=== PATIENT | male | born 1990 | race Hispanic/Latino ===

== ENCOUNTER 2016-10-22 16:30 | Emergency (ER) | payer SELFPAY ==
[2016-10-22 16:37] VITALS: TEMP 98.4; O2SAT 98; BMI 26.6
--- NOTE | 2016-10-22 16:52 | ED PDOC ---
Arrival/HPI - General Chief Complaint: Back Pain Time Seen by Provider: 10/22/16 16:43 Historian: Patient - History of Present Illness Narrative History of Present Illness (Text): 10/22/16 16:49 26yo male who present with complaint of sharp constant lower back pain since he woke up this morning. Notes that pain is worse with movement, and prolonged sitting. 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 He reports that he have had back pain in the past, but worse this time. Pain radiates posteriorly to his lower leg. He did not take any medication for the pain. Denies trauma, focal weakness, urinary/fecal incontinence, saddle anesthesia, abdominal pain, urinary symptoms, hematuria, any other complaint, Past Medical History - Provider Review Nursing Documentation Reviewed: Yes - Psychiatric Hx Substance Use: No - Surgical History Other/Comment: Lower back cyst removal Family/Social History - Physician Review Nursing Documentation Reviewed: Yes Family/Social History: Unknown Family HX Smoking Status: Current Some Days Smoker Hx Alcohol Use: Yes Frequency of alcohol use: Socially Hx Substance Use: No Allergies/Home Meds Allergies/Adverse Reactions: Allergies amoxicillin Allergy (Verified 10/22/16 16:37) RASH Penicillins Allergy (Verified 10/22/16 16:37) RASH Review of Systems - Physician Review All systems were reviewed & negative as marked: Yes - Review of Systems Constitutional: Normal Eyes: Normal ENT: Normal Respiratory: Normal Cardiovascular: Normal Gastrointestinal: Normal Genitourinary Male: Normal Musculoskeletal: Back Pain Skin: Normal Neurological: Normal Endocrine: Normal Hemo/Lymphatic: Normal Psychiatric: Normal Physical Exam Vital Signs Reviewed: Yes Vital Signs Temp Pulse Resp BP Pulse Ox 10/22/16 16:34 98.4 F 87 16 121/73 98 Temperature: Afebrile Blood Pressure: Normal Pulse: Regular Respiratory Rate: Normal Appearance: Positive for: Well-Appearing, Non-Toxic, Comfortable Pain Distress: None Mental Status: Positive for: Alert and Oriented X 3 - Systems Exam Head: Present: Atraumatic, Normocephalic Pupils: Present: PERRL Extroacular Muscles: Present: EOMI Conjunctiva: Present: Normal Mouth: Present: Moist Mucous Membranes Neck: Present: Normal Range of Motion Respiratory/Chest: Present: Clear to Auscultation, Good Air Exchange. No: Respiratory Distress, Accessory Muscle Use Cardiovascular: Present: Regular Rate and Rhythm, Normal S1, S2. No: Murmurs Abdomen: Present: Normal Bowel Sounds. No: Tenderness, Distention, Peritoneal Signs Back: Present: Pain with Leg Raise (Right leg). No: Midline Tenderness, Paraspinal Tenderness Upper Extremity: Present: Normal Inspection. No: Cyanosis, Edema Lower Extremity: Present: Normal Inspection. No: Edema Neurological: Present: GCS=15, CN II-XII Intact, Speech Normal Skin: Present: Warm, Dry, Normal Color. No: Rashes Psychiatric: Present: Alert, Oriented x 3, Normal Insight, Normal Concentration Medical Decision Making ED Course and Treatment: 10/22/16 17:30 PT was ambulatory in ED. He have no focal neurological deficit. His pain improved in ED with medication. He denied trauma. No imaging done at this time. He was DC home with Naprosyn and flexreil for MS. Referred him to his PMD. - Medication Orders Current Medication Orders: Discontinued Medications Cyclobenzaprine HCl (Flexeril) 10 mg PO STAT STA Stop: 10/22/16 16:49 Last Admin: 10/22/16 17:11 Dose: 10 mg Ketorolac Tromethamine (Toradol) 60 mg IM STAT STA Stop: 10/22/16 16:49 Last Admin: 10/22/16 17:11 Dose: 60 mg Disposition/Present on Arrival - Present on Arrival Any Indicators Present on Arrival: No History of DVT/PE: No History of Uncontrolled Diabetes: No Urinary Catheter: No History of Decub. Ulcer: No History Surgical Site Infection Following: None - Disposition Have Diagnosis and Disposition been Completed?: Yes Diagnosis: Back pain, Sciatica Disposition: HOME/ ROUTINE Disposition Time: 17:30 Patient Plan: Discharge Patient Problems: Current Active Problems Problem Status Onset Back pain Acute Sciatica Acute Condition: IMPROVED Discharge Instructions (ExitCare): Acute Low Back Pain (ED) Additional Instructions: Follow up with your doctor/orthopedist Rest and apply warm compress to area Return to ED for any new or worsening symptoms Prescriptions: Cyclobenzaprine [Cyclobenzaprine HCl] 10 mg PO TID #12 tab Naproxen [Naprosyn] 500 mg PO BID #20 tab Referrals: Noble Pabon DO [Staff Provider] - Follow up with primary Forms: WORK NOTE
[2016-10-22 17:51] VITALS: BP 120/80; PULSE 84; RESP 18
== END 2016-10-22 17:54 | disposition home or self-care (01) ==
LOC: ED 16:30
DX: M54.40 Lumbago with sciatica, unspecified side (principal)
CPT/HCPCS: 96372; 99282; J1885

== ENCOUNTER 2017-04-07 12:41 | Emergency (ER) | payer MEDICAID, OTHER ==
[2017-04-07 12:41] VITALS: BMI 26.6
[2017-04-07 12:50] VITALS: RESP 18; TEMP 98.3; O2SAT 100
[2017-04-07 14:14] LABS: BASO # 0.02 K/mm3 (0.0-2.0); BASO % 0.4 % (0.0-3.0); EOS # 0.1 (0.0-0.7); EOS % 1.1 % (1.5-5.0); GRAN # 3.06 (1.4-6.5); GRAN % 64.6 % (50.0-68.0); HEMATOCRIT 45.4 % (42.0-52.0); LYMPH # 1.3 (1.2-3.4); LYMPH % 27.1 % (22.0-35.0); MEAN CELL VOLUME 83.5 fl (80.0-105.0); MEAN CORPUSCULAR HEMOGLOBIN 27.9 pg (25.0-35.0); MEAN CORPUSCULAR HGB CONC 33.5 g/dl (31.0-37.0); MEAN PLATELET VOLUME 9.8 fl (7.0-11.0); MONO # 0.3 (0.1-0.6); MONO % 6.8 % (1.0-6.0); WHITE BLOOD COUNT 4.7 10^3/ul (4.5-11.0)
[2017-04-07 14:16] LABS: PH,URINE 8.5 (4.7-8.0); URINE BILIRUBIN NEGATIVE (NEGATIVE); URINE BLOOD NEGATIVE (NEGATIVE); URINE GLUCOSE (UA) NEGATIVE (NEGATIVE); URINE KETONE NEGATIVE (NEGATIVE); URINE LEUKOCYTE ESTERASE NEGATIVE Leu/uL (NEGATIVE); URINE PROTEIN TRACE mg/dL (<30 mg/dL); URINE UROBILINOGEN 0.2 E.U./dL (<1 E.U./dL)
[2017-04-07 14:17] LABS: URINE APPEARANCE CLEAR (CLEAR); URINE COLOR YELLOW (YELLOW)
[2017-04-07 14:18] LABS: ALB/GLOB RATIO 1.2 (1.1-1.8); ALKALINE PHOSPHATASE 53 U/L (38-126); ALT/SGPT 29 U/L (7-56); AST/SGOT 24 U/L (17-59); BILIRUBIN,TOTAL 0.6 mg/dL (0.2-1.3); BLOOD UREA NITROGEN 14 mg/dL (7-21); CALCIUM 9.1 mg/dL (8.4-10.5); CARBON DIOXIDE 29 mmol/L (21-33); CHLORIDE 102 mmol/L (98-107); GFR AFRICAN-AMERICAN > 60; GLUCOSE,RANDOM 83 mg/dL (70-110); MAGNESIUM 2.1 mg/dL (1.7-2.2); SODIUM 139 mmol/L (132-148); TOTAL PROTEIN 7.5 g/dL (5.8-8.3)
[2017-04-07 14:24] LABS: URINE RBC NEGATIVE /hpf (0-2)
[2017-04-07 14:25] LABS: INR 1.13 (0.93-1.08)
[2017-04-07 14:25] LABS: URINE AMORPHOUS SEDIMENT FEW; URINE BACTERIA MOD (NEG); URINE WBC NEGATIVE /hpf (0-6)
[2017-04-07 14:28] LABS: D DIMER < 200 ng/mL (0-243)
[2017-04-07 14:31] LABS: TROPONIN I 0.03 ng/mL
--- NOTE | 2017-04-07 15:02 | ED PDOC ---
Arrival/HPI - General Chief Complaint: Chest Pain Time Seen by Provider: 04/07/17 13:18 Historian: Patient - History of Present Illness Narrative History of Present Illness (Text): 04/07/17 14:59 26yo male present with complaint of right sided chest pain. States pain started this morning and he had an episode of vomiting today. Notes that pain is when he tries to sit up. He did not take any medication. He denies shortness of breath, abdominal pain, diaphoresis, LE edema, calf pain, recent travel, trauma , cough, dizziness, visual change, any other complaint. Past Medical History - Provider Review Nursing Documentation Reviewed: Yes - Cardiac Hx Cardiac Disorders: No - Pulmonary Hx Respiratory Disorders: No - Neurological Hx Neurological Disorder: No - HEENT Hx HEENT Disorder: No - Renal Hx Renal Disorder: No - Endocrine/Metabolic Hx Endocrine Disorders: No - Hematological/Oncological Hx Blood Disorders: No - Integumentary Hx Dermatological Disorder: No - Musculoskeletal/Rheumatological Hx Musculoskeletal Disorders: No - Gastrointestinal Hx Gastrointestinal Disorders: No - Genitourinary/Gynecological Hx Genitourinary Disorders: No - Psychiatric Hx Psychophysiologic Disorder: No Hx Substance Use: No - Surgical History Other/Comment: Lower back cyst removal Family/Social History - Physician Review Nursing Documentation Reviewed: Yes Family/Social History: Unknown Family HX Smoking Status: Current Some Days Smoker Hx Alcohol Use: Yes Hx Substance Use: No Allergies/Home Meds Allergies/Adverse Reactions: Allergies amoxicillin Allergy (Verified 04/07/17 12:49) RASH Penicillins Allergy (Verified 04/07/17 12:49) RASH Home Medications: Home Meds Medication Instructions Recorded Confirmed No Known Home Med 04/07/17 04/07/17 Review of Systems - Physician Review All systems were reviewed & negative as marked: Yes - Review of Systems Constitutional: Normal Eyes: Normal ENT: Normal Respiratory: Normal Cardiovascular: Chest Pain. absent: Palpitations, Edema, Calf Pain Gastrointestinal: Normal Genitourinary Male: Normal Musculoskeletal: Normal Skin: Normal Neurological: Normal Endocrine: Normal Hemo/Lymphatic: Normal Psychiatric: Normal Physical Exam Vital Signs Reviewed: Yes Vital Signs Temp Pulse Resp BP Pulse Ox 04/07/17 16:00 67 18 116/69 100 04/07/17 14:11 66 18 117/61 100 04/07/17 12:50 98.3 F 65 18 115/58 L 100 04/07/17 12:49 98.3 F 65 20 115/52 L 100 Temperature: Afebrile Blood Pressure: Normal Pulse: Regular Respiratory Rate: Normal Appearance: Positive for: Well-Appearing, Non-Toxic, Comfortable Pain Distress: None Mental Status: Positive for: Alert and Oriented X 3 - Systems Exam Head: Present: Atraumatic, Normocephalic Pupils: Present: PERRL Extroacular Muscles: Present: EOMI Conjunctiva: Present: Normal Mouth: Present: Moist Mucous Membranes Neck: Present: Normal Range of Motion Respiratory/Chest: Present: Clear to Auscultation, Good Air Exchange. No: Respiratory Distress, Accessory Muscle Use, Wheezes, Decreased Breath Sounds, Rales, Retracting, Rhonchi Cardiovascular: Present: Regular Rate and Rhythm, Normal S1, S2. No: Murmurs Abdomen: Present: Normal Bowel Sounds. No: Tenderness, Distention, Peritoneal Signs Back: Present: Normal Inspection Upper Extremity: Present: Normal Inspection. No: Cyanosis, Edema Lower Extremity: Present: Normal Inspection. No: Edema Neurological: Present: GCS=15, CN II-XII Intact, Speech Normal Skin: Present: Warm, Dry, Normal Color. No: Rashes Psychiatric: Present: Alert, Oriented x 3, Normal Insight, Normal Concentration Medical Decision Making ED Course and Treatment: 04/07/17 20:14 PT in Emergency department with right sided chest pain. He denies any PMH. He have no familial cardiac history and no risk factor for cardiac event. CXR NAD EKG NSR @69bpm Lab was unremarkable. Marijuana was noted in the UDS. Result was DW the pt. He was however strongly advised to avoid any strenuous/ sports activity until his cleared by a retail office manager. TRT Emergency department for any new or worsening symptoms. - Lab Interpretations Lab Results: 04/07/17 13:47 04/07/17 13:47 Lab Results 04/07/17 14:03: Urine Opiates Screen Negative, Urine Methadone Screen Negative, Ur Barbiturates Screen Negative, Ur Phencyclidine Scrn Negative, Ur Amphetamines Screen Negative, U Benzodiazepines Scrn Negative, U Oth Cocaine Metabols Negative, U Cannabinoids Screen Positive H 04/07/17 14:03: Urine Color Yellow, Urine Appearance Clear, Urine pH 8.5, Ur Specific [place] 1.015, Urine Protein Trace H, Urine Glucose (UA) Negative, Urine Ketones Negative, Urine Blood Negative, Urine Nitrate Negative, Urine Bilirubin Negative, Urine Urobilinogen 0.2, Ur Leukocyte Esterase Negative, Urine RBC Negative, Urine WBC Negative, Ur Epithelial Cells None, Amorphous Sediment Few, Urine Bacteria Mod 04/07/17 13:47: Sodium 139, Potassium 4.0, Chloride 102, Carbon Dioxide 29, Anion Gap 12, BUN 14, Creatinine 1.1, Est GFR ( Amer) > 60, Est GFR (Non- Af Amer) > 60, Random Glucose 83, Calcium 9.1, Magnesium 2.1, Total Bilirubin 0.6, AST 24, ALT 29, Alkaline Phosphatase 53, Lactate Dehydrogenase 347, Total Creatine Kinase 193, Troponin I 0.03, Total Protein 7.5, Albumin 4.1, Globulin 3.4, Albumin/Globulin Ratio 1.2 04/07/17 13:47: PT 12.3, INR 1.13 H, APTT 33.0, D-Dimer, Quantitative < 200 04/07/17 13:47: WBC 4.7, RBC 5.44, Hgb 15.2, Hct 45.4, MCV 83.5, MCH 27.9, MCHC 33.5, RDW 14.0, Plt Count 192, MPV 9.8, Gran % 64.6, Lymph % (Auto) 27.1, [place] % (Auto) 6.8 H, Eos % (Auto) 1.1 L, Baso % (Auto) 0.4, Gran # 3.06, Lymph # 1.3 , [place] # 0.3, Eos # 0.1, Baso # 0.02 - RAD Interpretation Radiology Orders: 04/07/17 13:31 CHEST TWO VIEWS (PA/LAT) [RAD] Stat - Medication Orders Current Medication Orders: Discontinued Medications Aspirin (Aspirin) 325 mg PO STAT STA Stop: 04/07/17 13:32 Last Admin: 04/07/17 13:43 Dose: 325 mg Disposition/Present on Arrival - Present on Arrival Any Indicators Present on Arrival: No History of DVT/PE: No History of Uncontrolled Diabetes: No Urinary Catheter: No History of Decub. Ulcer: No History Surgical Site Infection Following: None - Disposition Have Diagnosis and Disposition been Completed?: Yes Diagnosis: Chest pain Disposition: HOME/ ROUTINE Disposition Time: 16:00 Patient Plan: Discharge Condition: STABLE Discharge Instructions (ExitCare): Chest Pain (ED) Additional Instructions: Follow up with your private Doctor/Recruiting Assistant Avoid any strenuous/sport activity until your cleared by a retail office manager Return to Emergency department for any new or worsening symptoms Referrals: [place] [facility] [place] - Follow up with primary Rene Whitt MD [Staff Provider] - Follow up with primary PCP,NO [Primary Care Provider] - Follow up with primary Forms: [employer] (Upper Sorbian), WORK NOTE
[2017-04-07 16:24] VITALS: BP 116/69; PULSE 67
--- NOTE | 2017-04-07 16:47 | RAD ---
HISTORY: chest pain COMPARISON: No prior. TECHNIQUE: Chest PA and lateral FINDINGS: LUNGS: No active pulmonary disease. PLEURA: No significant pleural effusion identified. No pneumothorax apparent. CARDIOVASCULAR: Normal. OSSEOUS STRUCTURES: No significant abnormalities. VISUALIZED UPPER ABDOMEN: Normal. OTHER FINDINGS: None. IMPRESSION: No active disease.
--- NOTE | 2017-04-08 10:36 | CARD ---
APPROVED REPORT EKG Measurement Heart [id number] <Conclusion> Normal sinus rhythm with sinus arrhythmia Normal ECG
== END 2017-04-07 16:32 | disposition home or self-care (01) ==
LOC: ED 12:41
DX: R07.9 Chest pain, unspecified (principal)
CPT/HCPCS: 71020; 80053; 81001; 82550; 83615; 83735; 84484; 85025; 85378; 85610; 85730; 93005; 99283; G0480

== ENCOUNTER 2017-05-26 15:11 | Emergency (ER) | payer MEDICAID ==
[2017-05-26 15:11] VITALS: BMI 26.6
[2017-05-26] MEDS ORDERED: Sodium Chloride 0.9% 1,000 ML IV STA (15:46)
--- NOTE | 2017-05-26 15:46 | ED PDOC ---
Arrival/HPI - General Historian: Patient - History of Present Illness Time/Duration: 24 hours Symptom Onset: Gradual Activities at Onset: Rest - General Chief Complaint: Dizziness/Lightheaded Time Seen by Provider: 05/26/17 15:21 - History of Present Illness Narrative History of Present Illness (Text): 05/26/17 15:45 26M with no PMH presents with dizziness, nausea, vomiting x 1 episode Patient states he ate pizza at 2pm yesterday, started feeling nauseas. 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 Patient states that the dizziness is worse when he goes from sitting to standing. He feels that he does not have good balance when he feels dizzy. He also feels that at times the room is moving around him. Patient states when he turns his head while sitting, he feels dizzy, but when he lays down to turn his head he is not dizzy. Patient admitted to one episode of vomiting yesterday and 0 episodes today. Patient states he was able to eat breakfast today with no issues. Patient states that he's thirsty and a little bit nauseas at time of visit to ER. Patient has been urinating more frequently this past month and finds that it's hard to stop at times. 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 Sexually active without condom protection, no abnormal penile discharge, patient denies drinking alcohol yesterday Family Hx: Patient states his father has diabetes. (Cindy Velasquez) Past Medical History - Provider Review Nursing Documentation Reviewed: Yes - Infectious Disease Hx of Infectious Diseases: None - Cardiac Hx Cardiac Disorders: No - Pulmonary Hx Respiratory Disorders: No - Neurological Hx Neurological Disorder: Yes Hx Syncope: Yes Hx Vertigo: Yes - HEENT Hx HEENT Disorder: No - Renal Hx Renal Disorder: No - Endocrine/Metabolic Hx Endocrine Disorders: No - Hematological/Oncological Hx Blood Disorders: No - Integumentary Hx Dermatological Disorder: No - Musculoskeletal/Rheumatological Hx Musculoskeletal Disorders: No - Gastrointestinal Hx Gastrointestinal Disorders: No - Genitourinary/Gynecological Hx Genitourinary Disorders: No - Psychiatric Hx Psychophysiologic Disorder: No Hx Substance Use: Yes (Socially) - Surgical History Other/Comment: Lower back cyst removal - Anesthesia Hx Anesthesia: No Family/Social History - Physician Review Nursing Documentation Reviewed: Yes Family/Social History: Unknown Family HX Smoking Status: Never Smoked Hx Alcohol Use: Yes Frequency of alcohol use: Socially Hx Substance Use: Yes (Socially) Substance used: Marijuana Allergies/Home Meds Allergies/Adverse Reactions: Allergies amoxicillin Allergy (Verified 05/26/17 15:33) RASH Penicillins Allergy (Verified 05/26/17 15:33) RASH Review of Systems - Physician Review All systems were reviewed & negative as marked: Yes - Review of Systems Constitutional: Normal, Night Sweats. absent: Fevers Eyes: Normal. absent: Vision Changes, Photophobia, Eye Pain ENT: Normal. absent: Hearing Changes, Tinnitus, TMJ Pain Respiratory: Normal. absent: SOB, Cough, Sputum Cardiovascular: Normal Gastrointestinal: absent: Abdominal Pain, Stool Changes, Constipation, Diarrhea Genitourinary Male: Frequency (increased). absent: Urinary Output Changes Musculoskeletal: Normal. absent: Arthralgias, Back Pain, Neck Pain Skin: Normal. absent: Rash, Pruritis, Skin Lesions, Laceration, Abscess Neurological: Normal, Headache, Dizziness. absent: Focal Weakness, Gait Changes , Speech Changes, Facial Droop, Disequilibrium, Seizure Endocrine: Polyuria. absent: Diaphoresis, Polydipsia Psychiatric: absent: Anxiety, Depression, Suicidal Ideation Physical Exam Vital Signs Reviewed: No Temperature: Afebrile Blood Pressure: Normal Pulse: Regular Respiratory Rate: Normal Appearance: Positive for: Comfortable. No: Non-Toxic Pain Distress: Mild Mental Status: Positive for: Alert and Oriented X 3. No: Confused - Systems Exam Head: Present: Atraumatic, Normocephalic. No: Tenderness Pupils: Present: PERRL Extroacular Muscles: Present: EOMI Conjunctiva: Present: Normal. No: Injected, Icteric Ears: Present: Normal, NORMAL TM. No: Erythema, Normal Canal, TM Bulging Mouth: Present: Moist Mucous Membranes. No: Dry Pharnyx: Present: Normal. No: ERYTHEMA, EXUDATE Nose (External): Present: Atraumatic. No: Abrasion, Contusion, Laceration Nose (Internal): Present: Normal Inspection. No: No Active Bleeding, Moist, Engorged Neck: Present: Normal Range of Motion, Trachea Midline. No: JVD, Lymphadenopathy Respiratory/Chest: Present: Clear to Auscultation, Good Air Exchange. No: Respiratory Distress Cardiovascular: Present: Regular Rate and Rhythm, Normal S1, S2 Abdomen: Present: Normal Bowel Sounds. No: Tenderness, Distention Back: Present: Normal Inspection Upper Extremity: Present: Normal Inspection, Normal ROM, NORMAL PULSES, Capillary Refill < 2s. No: Edema Lower Extremity: Present: Normal Inspection, NORMAL PULSES, Capillary Refill < 2 s. No: Edema, CALF TENDERNESS Neurological: Present: GCS=15, CN II-XII Intact Skin: Present: Warm, Dry, Normal Color Psychiatric: Present: Alert, Oriented x 3, Normal Insight, Normal Concentration , Normal Affect, Normal Mood Vital Signs Temp Pulse Resp BP Pulse Ox 05/26/17 15:49 98.0 F 70 20 108/68 100 Medical Decision Making Re-evaluation Time: 17:06 Reassessment Condition: Improving,but remains with symptoms ED Course and Treatment: 05/26/17 16:54 Seen and examined with the resident. Our history and physical exam reveals a young gentleman complaining of a 2 day history of nausea and positional dizziness. No chest pain palpitations or dyspnea. There has been some vomiting. He markedly improved after Zofran and IV fluids. (Tolerico,Dwayne) 05/26/17 16:10 cbc cmp, mg urinalysis NS 1L bolus zofran 8mg IVP (Eng,Cindy) - Lab Interpretations Lab Results: 05/26/17 16:00 05/26/17 16:00 Lab Results 05/26/17 16:00: Sodium 141, Potassium 3.7, Chloride 103, Carbon Dioxide 26, Anion Gap 15, BUN 16, Creatinine 1.0, Est GFR ( Amer) > 60, Est GFR (Non- Af Amer) > 60, Random Glucose 89, Calcium 9.4, Magnesium 1.8, Total Bilirubin 0.5, AST 24, ALT 37, Alkaline Phosphatase 54, Total Protein 7.5, Albumin 4.2, Globulin 3.4, Albumin/Globulin Ratio 1.2 05/26/17 16:00: WBC 5.6, RBC 5.49, Hgb 15.2, Hct 45.5, MCV 82.9, MCH 27.7, MCHC 33.4, RDW 14.1, Plt Count 210, MPV 9.7, Gran % 61.0, Lymph % (Auto) 31.7, [place] % (Auto) 5.9, Eos % (Auto) 1.2 L, Baso % (Auto) 0.2, Gran # 3.43, Lymph # (Auto ) 1.8, [place] # (Auto) 0.3, Eos # (Auto) 0.1, Baso # (Auto) 0.01 - Medication Orders Current Medication Orders: Discontinued Medications Sodium Chloride (Sodium Chloride 0.9%) 1,000 mls @ 999 mls/hr IV .Q1H1M STA Stop: 05/26/17 16:46 Last Admin: 05/26/17 16:08 Dose: 999 mls/hr eMAR Start Stop Document 05/26/17 16:08 [facility] (Rec: 05/26/17 16:11 [facility] [id number]) Intravenous Solution Start Date 05/26/17 Start Time 16:11 End Date 05/26/17 End time 17:11 Total Infusion Time 60 Ondansetron HCl (Zofran Inj) 8 mg IVP STAT STA Stop: 05/26/17 15:47 Last Admin: 05/26/17 16:07 Dose: 8 mg IVP Administration Document 05/26/17 16:07 [facility] (Rec: 05/26/17 16:07 [facility] [id number]) Charges for Administration # of IVP Administrations 1 Disposition/Present on Arrival - Present on Arrival Any Indicators Present on Arrival: No History of DVT/PE: No History of Uncontrolled Diabetes: No Urinary Catheter: No History of Decub. Ulcer: No History Surgical Site Infection Following: None - Disposition Have Diagnosis and Disposition been Completed?: Yes Disposition Time: 17:09 Patient Plan: Discharge - Disposition Diagnosis: Food poisoning, Dehydration Disposition: HOME/ ROUTINE Condition: IMPROVED Additional Instructions: follow up with primary care doctor if symptoms continue to be present return to ED if nausea, vomiting, dizziness, loss of consciousness, fainting, diarrhea take medication as needed Prescriptions: Ondansetron HCl [Zofran] 4 mg PO Q6H #12 tablet Referrals: Sebastien Hurtado, [Primary Care Provider] - Follow up with primary Forms: [email or web address] (Hebrew)
[2017-05-26 15:50] VITALS: TEMP 98; O2SAT 100
[2017-05-26 16:36] LABS: BASO # 0.01 K/mm3 (0.0-2.0); BASO % 0.2 % (0.0-3.0); EOS # 0.1 (0.0-0.7); EOS % 1.2 % (1.5-5.0); GRAN # 3.43 (1.4-6.5); HEMOGLOBIN 15.2 g/dL (14.0-18.0); LYMPH # 1.8 (1.2-3.4); LYMPH % 31.7 % (22.0-35.0); MEAN CELL VOLUME 82.9 fl (80.0-105.0); MEAN CORPUSCULAR HEMOGLOBIN 27.7 pg (25.0-35.0); MEAN CORPUSCULAR HGB CONC 33.4 g/dl (31.0-37.0); MEAN PLATELET VOLUME 9.7 fl (7.0-11.0); MONO # 0.3 (0.1-0.6); MONO % 5.9 % (1.0-6.0); RBC 5.49 10^6/uL (3.5-6.1); RED CELL DISTRIBUTION WIDTH 14.1 % (11.5-14.5); WHITE BLOOD COUNT 5.6 10^3/ul (4.5-11.0)
[2017-05-26 16:41] LABS: ALB/GLOB RATIO 1.2 (1.1-1.8); ALBUMIN 4.2 g/dL (3.0-4.8); ALT/SGPT 37 U/L (7-56); AST/SGOT 24 U/L (17-59); BLOOD UREA NITROGEN 16 mg/dL (7-21); CALCIUM 9.4 mg/dL (8.4-10.5); GFR AFRICAN-AMERICAN > 60; GFR NON-AFRICAN AMERICAN > 60; MAGNESIUM 1.8 mg/dL (1.7-2.2)
[2017-05-26 18:21] LABS: PH,URINE 7.5 (4.7-8.0); URINE BILIRUBIN NEGATIVE (NEGATIVE); URINE BLOOD TRACE-INTACT (NEGATIVE); URINE GLUCOSE (UA) NEGATIVE (NEGATIVE); URINE LEUKOCYTE ESTERASE NEGATIVE Leu/uL (NEGATIVE); URINE NITRATE NEGATIVE (NEGATIVE); URINE PROTEIN NEGATIVE mg/dL (<30 mg/dL)
[2017-05-26 18:22] LABS: URINE APPEARANCE CLEAR (CLEAR); URINE COLOR YELLOW (YELLOW)
[2017-05-26 18:26] VITALS: BP 117/74; PULSE 66; RESP 14
[2017-05-26 18:30] LABS: URINE RBC 0 - 2 /hpf (0-2); URINE WBC 0 - 2 /hpf (0-6)
== END 2017-05-26 17:09 | disposition home or self-care (01) ==
LOC: ED 15:11
DX: T62.91XA Toxic effect of unspecified noxious substance eaten as food, accidental (unintentional), initial encounter (principal); E86.0 Dehydration
CPT/HCPCS: 80053; 81001; 83735; 85025; 96361; 96374; 99284; J2405; J7040

== ENCOUNTER 2017-09-30 17:41 | Emergency (ER) | payer MEDICAID ==
[2017-09-30 17:46] VITALS: BMI 25.8
[2017-09-30 17:47] VITALS: BP 131/70; PULSE 89; RESP 18; TEMP 98.3; O2SAT 100
--- NOTE | 2017-09-30 17:55 | ED PDOC ---
Arrival/HPI - General Chief Complaint: GI Problem Time Seen by Provider: 09/30/17 17:52 Historian: Patient - History of Present Illness Narrative History of Present Illness (Text): 09/30/17 17:52 27yo male with no past medical history who present to Emergency department stating he vomited twice and had diarrhea x2 when he woke up this morning. Notes that he has since been able to tolerate food and fluid. States he needs work note, because he didn't go to work today. He denies any current abdominal pain, nausea, fever,chills, chest pain, urinary symptoms, sick contact, travel, any other complaint. Past Medical History - Provider Review Nursing Documentation Reviewed: Yes - Infectious Disease Hx of Infectious Diseases: None - Cardiac Hx Cardiac Disorders: No - Pulmonary Hx Respiratory Disorders: No - Neurological Hx Neurological Disorder: Yes Hx Syncope: Yes Hx Vertigo: Yes - HEENT Hx HEENT Disorder: No - Renal Hx Renal Disorder: No - Endocrine/Metabolic Hx Endocrine Disorders: No - Hematological/Oncological Hx Blood Disorders: No - Integumentary Hx Dermatological Disorder: No - Musculoskeletal/Rheumatological Hx Musculoskeletal Disorders: No - Gastrointestinal Hx Gastrointestinal Disorders: No - Genitourinary/Gynecological Hx Genitourinary Disorders: No - Psychiatric Hx Psychophysiologic Disorder: No Hx Substance Use: Yes (Socially) - Surgical History Other/Comment: Lower back cyst removal - Anesthesia Hx Anesthesia: Yes Hx Anesthesia Reactions: No Hx Malignant Hyperthermia: No Family/Social History - Physician Review Nursing Documentation Reviewed: Yes Family/Social History: Unknown Family HX Smoking Status: Never Smoked Hx Alcohol Use: Yes Hx Substance Use: Yes (Socially) Substance used: Marijuana Allergies/Home Meds Allergies/Adverse Reactions: Allergies amoxicillin Allergy (Verified 05/26/17 15:33) RASH Penicillins Allergy (Verified 05/26/17 15:33) RASH Home Medications: Home Meds Medication Instructions Recorded Confirmed No Known Home Med 09/30/17 09/30/17 Review of Systems - Physician Review All systems were reviewed & negative as marked: Yes - Review of Systems Constitutional: Normal Eyes: Normal ENT: Normal Respiratory: Normal Cardiovascular: Normal Gastrointestinal: Diarrhea, Nausea, Vomiting. absent: Abdominal Pain, Constipation, Hematochezia, Hematemesis Genitourinary Male: Normal Musculoskeletal: Normal Skin: Normal Neurological: Normal Endocrine: Normal Hemo/Lymphatic: Normal Psychiatric: Normal Physical Exam Vital Signs Reviewed: Yes Vital Signs Temp Pulse Resp BP Pulse Ox 09/30/17 17:47 98.3 F 89 18 131/70 100 Temperature: Afebrile Blood Pressure: Normal Pulse: Regular Respiratory Rate: Normal Appearance: Positive for: Well-Appearing, Non-Toxic, Comfortable Pain Distress: None Mental Status: Positive for: Alert and Oriented X 3 - Systems Exam Head: Present: Atraumatic, Normocephalic Pupils: Present: PERRL Extroacular Muscles: Present: EOMI Conjunctiva: Present: Normal Mouth: Present: Moist Mucous Membranes Neck: Present: Normal Range of Motion Respiratory/Chest: Present: Clear to Auscultation, Good Air Exchange. No: Respiratory Distress, Accessory Muscle Use Cardiovascular: Present: Regular Rate and Rhythm, Normal S1, S2. No: Murmurs Abdomen: Present: Other (Soft). No: Tenderness, Distention, Peritoneal Signs, Rebound, Guarding, McBurney's Point Tender, Rovsing's Sign Present Back: Present: Normal Inspection Upper Extremity: Present: Normal Inspection. No: Cyanosis, Edema Lower Extremity: Present: Normal Inspection. No: Edema Neurological: Present: GCS=15, CN II-XII Intact, Speech Normal Skin: Present: Warm, Dry, Normal Color. No: Rashes Psychiatric: Present: Alert, Oriented x 3, Normal Insight, Normal Concentration Medical Decision Making ED Course and Treatment: 10/01/17 01:24 PT denied any somatic complaint in Emergency department. notes that his symptoms resolved [facility]. He asked for work note and it was given. Referred to his PMD. Disposition/Present on Arrival - Present on Arrival Any Indicators Present on Arrival: No History of DVT/PE: No History of Uncontrolled Diabetes: No Urinary Catheter: No History of Decub. Ulcer: No History Surgical Site Infection Following: None - Disposition Have Diagnosis and Disposition been Completed?: Yes Diagnosis: Abdominal pain, Vomiting and diarrhea Disposition: HOME/ ROUTINE Disposition Time: 17:55 Patient Plan: Discharge Condition: STABLE Discharge Instructions (ExitCare): Acute Abdomen (Belly Pain) Additional Instructions: Follow up with your Doctor Return to Emergency department for any new symptoms Ref[place]: [facility] [place] [facility] [place] - Follow up with primary Forms: [place] ([place]ish), WORK NOTE
== END 2017-09-30 17:55 | disposition home or self-care (01) ==
LOC: ED 17:41
DX: R10.9 Unspecified abdominal pain (principal); R11.10 Vomiting, unspecified; R19.7 Diarrhea, unspecified

== ENCOUNTER 2017-10-14 18:44 | Emergency (ER) | payer MEDICAID ==
[2017-10-14 19:18] VITALS: BMI 26.6
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
[2017-10-14 22:15] VITALS: BP 125/72; PULSE 89; RESP 17; TEMP 98.2; O2SAT 98
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
== END 2017-10-14 22:15 | disposition home or self-care (01) ==
LOC: ED 18:44
DX: S00.12XA Contusion of left eyelid and periocular area, initial encounter (principal); Y04.0XXA Assault by unarmed brawl or fight, initial encounter; Y92.219 Unspecified school as the place of occurrence of the external cause

== ENCOUNTER 2018-05-09 18:54 | Emergency (ER) | payer SELFPAY ==
[2018-05-09 19:09] VITALS: BMI 28.4
[2018-05-09] MEDS ORDERED: Sodium Chloride 0.9% 1,000 ML IV SCH (20:00)
--- NOTE | 2018-05-09 20:04 | ED PDOC ---
Arrival/HPI - General Chief Complaint: Flu-like Symptoms Historian: Patient - History of Present Illness Narrative History of Present Illness (Text): 05/09/18 19:45 27 year old female, with no significant past medical history, presents to the emergency department complaining flu-like symptoms, fever, cough, congestion, and body aches that began 2 days. Patient also reports nausea, vomiting x1, diarrhea, and abdominal pain, but denies any chills, chest pain, shortness of breath, urinary symptoms, back pain, neck pain, headache, dizziness, or any other complaints. Time/Duration: Other (2 days) Symptom Onset: Gradual Symptom Course: Unchanged Activities at Onset: Light Context: Home Past Medical History - Provider Review Nursing Documentation Reviewed: Yes - Infectious Disease Hx of Infectious Diseases: None - Cardiac Hx Cardiac Disorders: No Hx Hypertension: No - Pulmonary Hx Tuberculosis: No - Neurological HX Cerebrovascular Accident: No Hx Seizures: No Hx Vertigo: Yes - HEENT Hx HEENT Disorder: No - Renal Hx Renal Disorder: No - Endocrine/Metabolic Hx Endocrine Disorders: No - Hematological/Oncological Hx Cancer: No - Integumentary Hx Dermatological Disorder: No - Musculoskeletal/Rheumatological Hx Musculoskeletal Disorders: No - Gastrointestinal Hx Gastrointestinal Disorders: No - Genitourinary/Gynecological Hx Sexually Transmitted Diseases: No - Psychiatric Hx Psychophysiologic Disorder: Yes Hx Anxiety: Yes Hx Substance Use: Yes (marijuana) - Surgical History Other/Comment: Lower back cyst removal - Anesthesia Hx Anesthesia: No Family/Social History - Physician Review Nursing Documentation Reviewed: Yes Family/Social History: No Known Family HX Smoking Status: Never Smoked Hx Alcohol Use: Yes Frequency of alcohol use: Socially Hx Substance Use: Yes (marijuana) Substance used: marijuana Allergies/Home Meds Allergies/Adverse Reactions: Allergies amoxicillin Allergy (Verified 05/09/18 19:09) RASH Penicillins Allergy (Verified 05/09/18 19:09) RASH Review of Systems - Physician Review All systems were reviewed & negative as marked: Yes - Review of Systems Constitutional: Fevers. absent: Other (Chills) ENT: Sinus Congestion Respiratory: Cough. absent: SOB Cardiovascular: absent: Chest Pain Gastrointestinal: Abdominal Pain, Diarrhea, Nausea, Vomiting Genitourinary Male: absent: Dysuria, Frequency, Hematuria Musculoskeletal: Myalgias. absent: Back Pain, Neck Pain Neurological: absent: Headache, Dizziness Physical Exam Vital Signs Reviewed: Yes Vital Signs Temp Pulse Resp BP Pulse Ox 05/09/18 19:11 100 F H 98 H 20 110/75 98 Temperature: Febrile Blood Pressure: Normal Pulse: Tachycardic Respiratory Rate: Normal Appearance: Positive for: Well-Appearing, Non-Toxic, Comfortable Pain Distress: None Mental Status: Positive for: Alert and Oriented X 3 - Systems Exam Head: Present: Atraumatic, Normocephalic Pupils: Present: PERRL Extroacular Muscles: Present: EOMI Conjunctiva: Present: Normal Mouth: Present: Moist Mucous Membranes Neck: Present: Normal Range of Motion Respiratory/Chest: Present: Clear to Auscultation, Good Air Exchange. No: Respiratory Distress, Accessory Muscle Use Cardiovascular: Present: Regular Rate and Rhythm, Normal S1, S2. No: Murmurs Abdomen: No: Tenderness, Distention, Peritoneal Signs Back: Present: Normal Inspection Upper Extremity: Present: Normal Inspection. No: Cyanosis, Edema Lower Extremity: Present: Normal Inspection. No: Edema Neurological: Present: GCS=15, CN II-XII Intact, Speech Normal Skin: Present: Warm, Dry, Normal Color. No: Rashes Psychiatric: Present: Alert, Oriented x 3, Normal Insight, Normal Concentration Medical Decision Making ED Course and Treatment: 05/09/18 19:45 Impression: 27 year old male presents complaining of flu-like symptoms, fever, cough, congestion, and body aches that began 2 days. Patient also reports nausea, vomiting x1, diarrhea, and abdominal pain. Plan: -- Labs -- IV Fluids, Toradol -- Influenza A B, Rapid Strep -- Urinalysis -- Reassess and disposition Prior Visits: Notes and results from previous visits were reviewed. Progress Notes: 05/09/18 22:18 Positive influenza A. On re-evaluation, patient feels better and is in no acute distress. I have discussed the results and plan with the patient, who expresses understanding. Patient in agreement with plan to be discharged home. Patient is stable for discharge. Patient was instructed to follow up with physician or return if symptoms worsen or new concerning symptoms arise. - Lab Interpretations I have reviewed the lab results: Yes - EKG Interpretation Interpreted by ED Physician: Yes - Medication Orders Current Medication Orders: Sodium Chloride (Sodium Chloride 0.9%) 1,000 mls @ 1,000 mls/hr IV .Q1H JULY Discontinued Medications Ketorolac Tromethamine (Toradol) 30 mg IVP ONCE ONE Stop: 05/09/18 19:52 - Scribe Statement The provider has reviewed the documentation as recorded by the Ricki Reid Provider Scribe Attestation: All medical record entries made by the Scribe were at my direction and personally dictated by me. I have reviewed the chart and agree that the record accurately reflects my personal performance of the history, physical exam, medical decision making, and the department course for this patient. I have also personally directed, reviewed, and agree with the discharge instructions and disposition. Disposition/Present on Arrival - Present on Arrival Any Indicators Present on Arrival: No History of DVT/PE: No History of Uncontrolled Diabetes: No Urinary Catheter: No History of Decub. Ulcer: No History Surgical Site Infection Following: None - Disposition Have Diagnosis and Disposition been Completed?: Yes Diagnosis: Influenza A, Hematuria, Conjunctivitis Disposition: HOME/ ROUTINE Disposition Time: 22:18 Condition: GOOD Discharge Instructions (ExitCare): Blood in the Urine (Hematuria) in Adults, Flu, Adult (DC), Conjunctivitis ([place]) (DC) Prescriptions: Oseltamivir Cap [Tamiflu] 75 mg PO BID #10 cap Tobramycin 0.3% [Tobrex 0.3% Ophth Soln] 1 drop OS BID #1 bottle Azithromycin [Zithromax] 250 mg PO DAILY #4 tab Referrals: Jamin Thompson MD [Staff Provider] - Follow up with primary Dominique Sosa MD [Medical Doctor] - Follow up with primary Forms: [employer] ([place]), WORK NOTE
[2018-05-09 20:10] LABS: URINE BILIRUBIN NEGATIVE (NEGATIVE); URINE BLOOD TRACE-INTACT (NEGATIVE); URINE GLUCOSE (UA) NEGATIVE (NEGATIVE); URINE LEUKOCYTE ESTERASE NEGATIVE Leu/uL (NEGATIVE); URINE PROTEIN NEGATIVE mg/dL (<30 mg/dL)
[2018-05-09 20:11] LABS: URINE APPEARANCE CLEAR (CLEAR); URINE COLOR YELLOW (YELLOW)
[2018-05-09 20:29] LABS: BASO # 0.01 K/mm3 (0.0-2.0); BASO % 0.2 % (0.0-3.0); GRAN # 3.09 (1.4-6.5); GRAN % 62.4 % (50.0-68.0); HEMOGLOBIN 14.3 g/dL (14.0-18.0); LYMPH # 1.3 (1.2-3.4); LYMPH % 25.9 % (22.0-35.0); MEAN CELL VOLUME 81.5 fl (80.0-105.0); MEAN CORPUSCULAR HEMOGLOBIN 27.5 pg (25.0-35.0); MEAN CORPUSCULAR HGB CONC 33.7 g/dl (31.0-37.0); MEAN PLATELET VOLUME 9.3 fl (7.0-11.0); MONO # 0.6 (0.1-0.6); MONO % 11.5 % (1.0-6.0); RBC 5.2 10^6/uL (3.5-6.1); RED CELL DISTRIBUTION WIDTH 14.6 % (11.5-14.5)
[2018-05-09 20:38] LABS: ALB/GLOB RATIO 1.2 (1.1-1.8); ALBUMIN 4.4 g/dL (3.0-4.8); ALT/SGPT 38 U/L (7-56); AST/SGOT 32 U/L (17-59); BLOOD UREA NITROGEN 10 mg/dL (7-21); CALCIUM 9.1 mg/dL (8.4-10.5); GFR NON-AFRICAN AMERICAN > 60
[2018-05-09 21:18] VITALS: RESP 18
[2018-05-09 21:27] LABS: INFLUENZA A B POS FOR INFLUENZA A (NEGATIVE)
[2018-05-09 22:37] VITALS: BP 113/69; PULSE 86; TEMP 100; O2SAT 100
== END 2018-05-09 22:36 | disposition home or self-care (01) ==
LOC: ED 18:54
DX: J10.1 Influenza due to other identified influenza virus with other respiratory manifestations (principal); H10.9 Unspecified conjunctivitis; R31.9 Hematuria, unspecified
CPT/HCPCS: 80053; 81001; 85025; 87070; 87430; 87804; 96361; 96374; 99284; J1885; J7030